=== PATIENT | female | born 1975 | race Caucasian/White ===

== ENCOUNTER 2019-03-21 16:08 | Outpatient (CLI) | payer MEDICAID ==
[~2019-03-21] VITALS: Ht 160 cm; Wt 75.9 kg
--- NOTE | 2019-03-21 16:14 | NSTRPT ---
NST Information Datetime Report Generated by CPN: 03/21/2019 16:14 Datetime: 03/18/2019 13:10 NST Information EGA: 37.1 Test Number: 4 Time on Monitor: 03/18/2019 13:27 Time off Monitor: 03/18/2019 13:58 NST Duration (Min): 31 Reason for NST: Other Reason for NST Other: Advanced Maternal Age Test and Monitor Explained: Monitor Explained; Test Explained; Verbalized Understanding; Breastfeed ing Info Given Pulse: 88 Resp: 18 SBP: 118 DBP: 79 Test Evaluation NST Interventions: None Patient States Movement: Present Contraction Frequency: NONE FHR Baseline : 130 Variability: Moderate 6-25bpm Accelerations: 15X15 Decelerations: None FHR Category: Category I NST Results: Reactive Comments: To u/s. HUDSON 13.1cm. CEPHALIC. Electronically Signed By E-Signature: with User ID: [id number] Datetime: 03/15/2019 10:43 NST Information EGA: 36.5 NST Duration (Min): 24 Datetime: 03/11/2019 13:15 NST Information EGA: 36.1 NST Duration (Min): 21 Datetime: 03/09/2019 14:52 NST Information EGA: 35.6 Datetime: 03/09/2019 14:44 NST Duration (Min): 22
[2019-03-21 16:29] VITALS: Ht 160 cm; Wt 75.9 kg
--- NOTE | 2019-03-21 18:14 | PN ---
Triage Information Date/Time Subjective: 43 year-old G 4 P 2 at 37.4 weeks gestation presents with complaints of contractions. Objective: Vitals: 118/70 General: No apparent distress Abdomen: Gravid SVE: fingertip/thick/high Electronic monit: Category 1 130/mod emre/+accels/no decels Assessment/Plan: 1. ContractionsNST reactive. BPP 8/8. Patient to be discharged home if cervical exam is unchanged. 2. sectionplan is for repeat section Disposition: discharge to home Reason for visit: Uterine contractions Weeks of Gestation 37.4 /Para 4/2 MILESTONE,IVORY MONTE Mar 21, 2019 18:14
--- NOTE | 2019-03-21 18:27 | TRIAGE ---
OB Triage Datetime Report Generated by CPN: 03/21/2019 18:27 Datetime: 03/21/2019 17:52 Vaginal Exam Dilatation (cms): 0.5 Effacement (%): 0 Station: -3 Exam By: BROOKE PEREZ Vaginal Bleeding: None Cervix, Consistency: Soft Cervix, Position: Posterior Presentation 'A': Cephalic Datetime: 03/21/2019 17:35 Stage of : OB Triage Maternal Assessment Level of Consciousness: Keenly Alert, Responsive DTR's/Clonus: DTRs 1+ Headache: Denies Breath Sounds, Left: Clear and Equal Breath Sounds, Right: Clear and Equal Nausea/Vomiting: Denies RUQ Epigastric Pain: Denies Labor Evaluation Frequency: X1 Monitor Mode: External Duration (sec)2399: 100 Quality: Mild Pattern: Normal: <= 5 Contractions in 10 Minutes Resting Tone [place]: Relaxed Heart Rate FHR Baseline Rate: 125 Monitor Mode: External US Variability: Moderate 6-25 bpm Accelerations: 15X15 Decelerations: None Category: Category I Pain Assessment Pain Presence: None/Denies Pain Type: N/A Membrane Status: Intact Datetime: 03/21/2019 16:50 Stage of : OB Triage Maternal Assessment Level of Consciousness: Keenly Alert, Responsive DTR's/Clonus: DTRs 1+ Headache: Denies Blurred Vision: No Respiratory Effort: Unlabored Breath Sounds, Left: Clear and Equal Breath Sounds, Right: Clear and Equal Nausea/Vomiting: Denies RUQ Epigastric Pain: Denies Facial Edema: None Labor Evaluation Frequency: X1 Monitor Mode: External Duration (sec)2399: 100 Quality: Mild Pattern: Normal: <= 5 Contractions in 10 Minutes Resting Tone [place]: Relaxed Heart Rate FHR Baseline Rate: 125 Monitor Mode: External US Variability: Moderate 6-25 bpm Accelerations: 15X15 Decelerations: None Category: Category I Pain Assessment Pain Presence: None/Denies Pain Type: N/A Membrane Status: Intact Datetime: 03/21/2019 16:17 Vaginal Exam Dilatation (cms): 0.5 Effacement (%): 0 Station: -3 Exam By: BROOKE PEREZ Vaginal Bleeding: None Cervix, Consistency: Soft Cervix, Position: Posterior Presentation 'A': Cephalic Datetime: 03/21/2019 16:10 Assessment Type: Triage Maternal Assessment Level of Consciousness: Keenly Alert, Responsive DTR's/Clonus: DTRs 2+; No Clonus Headache: Denies Blurred Vision: No Respiratory Effort: Unlabored; Regular Rhythm; Equal Expansion Breath Sounds, Left: Clear and Equal Breath Sounds, Right: Clear and Equal Nausea/Vomiting: Denies RUQ Epigastric Pain: Denies Lower Extremities Edema: None Degree: None Upper Extremities Edema: None Degree: None Facial Edema: None Fall Risk Assessment History of Falling: (0) No Secondary Diagnosis: (0) No Ambulatory Aid: (0) Bedrest/Nurse Assist IV Therapy: (0) No Gait: (0) Normal/Bedrest/Immobile Mental Status: (0) Oriented to Own Ability Fall Score: 0 Fall Risk Score Definition: No Risk: No action required Datetime: 03/21/2019 15:57 Time of Arrival: 03/21/2019 15:57 EGA: 37.4 Arrived By: Ambulatory Arrived From: Office Chief Complaint: PT CAME IN FROM CLINIC TO R/O LABOR PT STATES FEELING 2-3 UC'S AN HR Movement: Present Contractions: Denies/Absent Rupture of Membranes: Denies Vaginal Discharge: Denies Recent Sexual Intercouse: Denies Abdominal Trauma: Not Applicable Additional Patient Complaints: NONE Time Provider Notified: 03/21/2019 16:32 Provider Notified: [place] Initial Plan: NST AND BPP
== END 2019-03-21 18:03 | disposition home or self-care (01) ==
LOC: L-D 16:08 → OBT 16:08 → L-D 16:11 → OBT 18:03
PROVIDERS: ATTEND Specialist
DX: O62.9 Abnormality of forces of labor, unspecified (principal); O34.219 Maternal care for unspecified type scar from previous cesarean delivery; O09.523 Supervision of elderly multigravida, third trimester; Z3A.37 37 weeks gestation of pregnancy
CPT/HCPCS: 76818

== ENCOUNTER 2019-03-31 15:36 | Inpatient (IN) | payer MEDICAID ==
[~2019-03-31] VITALS: Ht 160 cm; Wt 75.5 kg
[2019-03-31] MEDS ORDERED: LACTATED RINGER'S 1,000 ML IV SCH ×2 (16:22→21:05)
[2019-03-31 16:25] VITALS: Ht 160 cm; Wt 75.5 kg
[2019-03-31] MEDS ORDERED: METHYLERGONOVINE 0.2 MG INJ IM PRN (16:30)
[2019-03-31] MEDS ORDERED: OXYTOCIN 30 UNITS/LR 500 ML IV PRN (16:30)
[2019-03-31] MEDS ORDERED: CEFAZOLIN 2 GM/50 ML (PMX) 50 ML IVPB SCH (16:30)
[2019-03-31] MEDS ORDERED: OXYTOCIN 30 UNITS/LR 500 ML IV SCH (16:30)
[2019-03-31] MEDS ORDERED: CARBOPROST 250 MCG INJ IM PRN (16:30)
[2019-03-31] MEDS ORDERED: MISOPROSTOL 200 MCG TAB PR PRN ×2 (16:30→21:30)
--- NOTE | 2019-03-31 17:23 | PREAC ---
Date/Time of Note Date/Time of Note DATE: 03/31/19 TIME: 17:22 Anesthesia Eval and Record Evaluation Time Pre-Procedure Interview DATE: 03/31/19 TIME: 17:22 Age 43 Sex female NPO: 8 hrs Preoperative diagnosis Planned procedure c/s Past Medical History Past Medical History: None Surgery & Anesthesia Issues No known issue Meds Anticoagulation: No Beta Ann-Marie within 24 hr: No Reason Beta Ann-Marie not given: Pt. not on B-Ann-Marie No Active Prescriptions or Reported Meds Current Medications Lactated Ringer's 1,000 ml @ 125 mls/hr Q8H IV ; Start 03/31/19 at 16:22 Cefazolin Sodium/ Dextrose 50 ml @ 100 mls/hr ONCE IVPB ; Start 03/31/19 at 1 6:30 Oxytocin/Lactated Ringer's 500 ml @ 125 mls/hr POST IV ; Start 03/31/19 at 16:30 Oxytocin/Lactated Ringer's 500 ml @ 0 mls/hr ONCE PRN IV .VAGINAL BLEEDING; Start 03/31/19 at 16:30 Methylergonovine Maleate (Methergine) 0.2 mg ONCE PRN IM .VAGINAL BLEEDING; Start 03/31/19 at 16:30 Carboprost Tromethamine (Hemabate) 250 mcg ONCE PRN IM .VAGINAL BLEEDING; Start 03/31/19 at 16:30 Misoprostol (Cytotec) 1,000 mcg ONCE PRN AL .VAGINAL BLEEDING; Start 03/31/19 at 16:30 Meds reviewed: Yes Allergies Coded Allergies: No Known Allergy (Unverified , 03/21/19) Allergies Reviewed: Yes Labs/Studies Labs Reviewed: Reviewed by anesthesiologist Result Diagram: 03/31/19 1600 Laboratory Tests 03/31/19 16:00 test: Positive Pre-procedure Exam Airway: Adequate mouth opening, Adequate thyromental dist Mallampati: Mallampati II Teeth: Normal Lung: Normal Heart: Normal ASA Physical Status ASA physical status: 1 Emergency: None Planned Anesthetic General/MAC: Mask Neuraxial: Spinal Planned Pain Management Sub-arachniod narcotics Pre-operative Attestations Prior to commencing anesthesia and surgery, the patient was re-evaluated, there was verification of: *The patient's identity *The results of appropriate recent lab work and preoperative vital signs *The above evaluation not changing prior to induction *Anesthetic plan, risk benefits, alternative and complications discussed with patient/family; questions answered; patient/family understands, accepts and wishes to proceed. RILEY ARREAGA Mar 31, 2019 17:23
[2019-03-31] MEDS ORDERED: NALOXONE (0.4 MG/ML) INJ IV PRN (17:30)
[2019-03-31] MEDS ORDERED: ONDANSETRON 4 MG INJ IV PRN ×2 (17:30)
[2019-03-31] MEDS ORDERED: KETOROLAC 30 MG INJ IV PRN ×2 (17:30)
[2019-03-31] MEDS ORDERED: HYDROmorphONE 0.5 MG/0.5 ML SYG IV PRN ×2 (17:30)
[2019-03-31] MEDS ORDERED: FENTAnyl 50 MCG/ML VIAL IV PRN ×3 (17:30)
[2019-03-31] MEDS ORDERED: DIPHENHYDRAMINE 50 MG INJ IV PRN ×2 (17:30)
[2019-03-31] MEDS ORDERED: HYDROmorphONE 1 MG/5 ML IV SYRINGE IV PRN ×3 (17:30)
[2019-03-31] MEDS ORDERED: ALBUTEROL 0.083% (NEB) 2.5 MG/3 ML AMP HHN PRN (17:30)
[2019-03-31] MEDS ORDERED: METOCLOPRAMIDE 10 MG INJ IV PRN (17:30)
[2019-03-31] MEDS ORDERED: PHENYLephrine (100 MCG/ML) 10ML SYG ONE (18:20)
[2019-03-31] MEDS ORDERED: morphine SULFATE/PF (10 MG/10 ML) INJ ONE (18:27)
--- NOTE | 2019-03-31 19:34 | HP ---
Date/Time of Note Date/Time of Note DATE: 03/31/19 TIME: 19:31 OB - History Hx of Present Free Text/Dictation 43 YO with EDC 04/07/2019 with IUP at 39 weeks with history of previous delivery, who desires to have repeat delivery and Permanent sterilization. I discussed with the patient the risks, benefits, indications, and alternatives of procedure including but not limited to risks of infection, bleeding, damage to other organs, bowel, bladder, hernia formation, scar formation, possibility of blood transfusion, possible need for emergency hysterectomy, as well as the fact that tubal ligation may fail and there is 1 to 2% risk of failure over lifetime of tubal ligations and the fact that tubal ligation is permanent and irreversible. She was allowed to ask questions. All her questions were answered. Informed consent has been obtained. Care: Good Care Ultrasounds: Normal mid trimester US Obstetrical Complications: None Medical Complications: None Past Family/Social History * Past Medical, Surgical, Family and Obstetric Histories reviewed from chart. OB Admission Exam Physical Exam HEENT: WNL Heart: Rhythm Normal Lungs: Clear, Equal Abdomen: WNL Extremities: Normal Reflexes: Normal Last 72 hours Lab Results CBC & BMP 03/31/19 16:00 OB Assessment/Plan Other Assessment: Assessment: IUP 39 weeks h/o previous Desires repeat Desires permanent sterilization Other plan: Repeat Delivery Tubal ligation may be done by either salpingectomy or modified [place] BTL REYMUNDO FIGUEROA MD Mar 31, 2019 19:34
--- NOTE | 2019-03-31 19:43 | OPR ---
Date/Time of Note Date/Time of Note DATE: 03/31/19 TIME: 19:34 Operative Report Procedure Date: Mar 31, 2019 Preoperative Diagnosis Term at 39 weeks Desires repeat delivery desires permanent sterilization Postoperative Diagnosis same Right tube was absent due to previous ectopic Operation/Procedure Performed Repeat delivery Left Salpingectomy Surgeon see signature line Senior Category Manager Dr. MS Jorge Anesthesia Type: spinal Estimated Blood Loss: other (700 ml) Transfusion none Specimen Left tube Grafts/Implants none Tubes/Drains Kemp Cath Complications none Pt Condition Post Procedure: stable Disposition: PACU Procedure Description The risks, benefits, indications, alternatives of procedure including, but not limited to risk of infection, bleeding, damage to other organs, bowel, bladder, hernia formation, scar formation, possibility of blood transfusions, the risks of tubal ligation such as failure and future pregnancies were discussed with the patient. The fact that BTL is permanent and irreversible also discussed with patient. She was allowed to ask questions. All her questions were answered. Informed consent was obtained. DESCRIPTION OF PROCEDURE: She was taken to the operating room. Spinal anesthesia was induced. She was prepped and draped in the usual sterile fashion. Surgical time out one. Anesthesia was tested to be adequate. With permission from anesthesiologist, a knife was used to make a Pfannenstiel skin incision. The incision was taken down in layers. The fascia was cut, undermined and from the underlying muscle using sharp and blunt dissection. All the bleeders were cauterized. Peritoneum was entered bluntly. A low transverse incision was developed over the uterus. Amniotic fluid was clear and adequate. A viable infant in vertex presentation was delivered without any difficulty. The cord was clamped and cut, handed to awaiting team. Placenta was then delivered. Uterus was exteriorized, wrapped around a moist lap. Inside uterus was cleaned using a dry lap. All residual membranes were removed. The uterine incision was then closed using #1 Monocryl in 2 layers. A 5 cm distal end of the left tube was ligated 3 times using 0 plain tie and the ligated portion was cut, sent to pathology. Right tube was absent due to previous ectopic. The uterus was inserted back inside the abdominal cavity. Irrigation was done carefully. Careful evaluation of the uterine incision revealed no further bleeding. The tubal ligation sites were evaluated carefully. There was no bleeding. The peritoneum and rectus muscles and fascia were evaluated. All bleeders cauterized. Peritoneum was closed using 2-0 Monocryl. At this time, the count was correct. Rectus muscle was reapproximated using 2-0 Monocryl. Rectus fascia was closed using #1 Vicryl. Subcutaneous tissue was cleaned and irrigated. All bleeders cauterized and the skin closed using 4-0 Monocryl. All counts correct. REYMUNDO FIGUEROA MD Mar 31, 2019 19:43
[2019-03-31] MEDS ORDERED: NA PHOSPHATE/BIPHOS 133 ML ENEMA PR PRN (21:30)
[2019-03-31] MEDS ORDERED: LANOLIN HPA 1 PKT TOP PRN (21:30)
[2019-03-31] MEDS ORDERED: OXYCODONE/ACETAMINOPHEN (5/325) TAB PO PRN (21:30)
[2019-03-31 22:45] VITALS: BP 116/70; PULSE 70; RESP 18
[2019-04-01 01:00] VITALS: BP 108/68; PULSE 70; RESP 19
[2019-04-01 04:02] VITALS: BP 122/67; PULSE 69; RESP 19
[2019-04-01] MEDS: IBUPROFEN 600 MG TAB PO SCH ×5 (06:00→23:52)
--- NOTE | 2019-04-01 08:03 | QN ---
Documentation Comment s/p c/s Subjective: no complaint Objective: Afebrile, VSS NAD A&O Abdomen: soft, appropriate tender Incision: no sign of bleeding/infection mild lochia Extremity: 1+ edema bilaterally Assessment: S/p C/S postop day #1 Recovering Well Plan: current care REYMUNDO FIGUEROA MD Apr 01, 2019 08:03
[2019-04-01 08:30] VITALS: BP 104/71; PULSE 79; RESP 18
[2019-04-01] MEDS: SENNA/DOCUSATE NA (8.6MG/50MG) TAB PO SCH ×2 (09:11→20:47)
[2019-04-01 16:07] VITALS: BP 104/63; PULSE 78; RESP 18
[2019-04-01 20:00] VITALS: BP 121/85; PULSE 86; RESP 18
[2019-04-01] MEDS: OXYCODONE/ACETAMINOPHEN (5/325) TAB PO PRN (20:47)
--- NOTE | 2019-04-01 23:29 | DELSUM ---
Delivery Summary A-C Datetime Report Generated by CPN: 04/01/2019 23:28 DELIVERY PERSONNEL Managed Care Manager: Bandar, Shellie MATERNAL INFORMATION Delivery Anesthesia: Spinal Medications in Delivery: See anesthesia records Delivery QBL (ml): 700 Placenta Cultured: No Maternal Complications: None LABOR SUMMARY EDC: 04/07/2019 00:00 No. Babies in Womb: 1 Attempted: No Labor Anesthesia: None LABOR INFORMATION Reason for Induction: Not Applicable Group B Beta Strep: Not Done Antibiotics # of Doses: 1 Antibiotics Time of Last Dose: 03/31/2019 16:50 Steroids Given: None Reason Steroids Not Administered: Not Applicable MEMBRANES Membranes Rupture Method: Artificial Rupture of Membranes: 03/31/2019 19:03 Length of Rupture (hr): 0.00 Amniotic Fluid Color: Clear Amniotic Fluid Amount: Small Amniotic Fluid Odor: Normal STAGES OF LABOR Stage 3 hr: 0 Stage 3 min: 1 CSECTION DELIVERY Primary Indication: Repeat Elective CSection Urgency: Non Elective CSection Incidence: Repeat Labor: No Labor Elective: Nonelective CSection Incision: Lower Uterine Transverse Sterilization Procedure: [place] BABY A INFORMATION Infant Delivery Date/Time: 03/31/2019 19:03 Method of Delivery: Born in Route : No : N/A Forceps: N/A Vacuum Extraction: N/A Shoulder Dystocia : No SHOULDER DYSTOCIA BABY A Infant Delivery Date/Time: 03/31/2019 19:03 PRESENTATION/POSITION BABY A Presentation: Cephalic Cephalic Presentation: Vertex Vertex Position: Left Occipital Anterior Breech Presentation: N/A PLACENTA INFORMATION BABY A Placenta Delivery Time : 03/31/2019 19:04 Placenta Method of Delivery: Manual Removal Placenta Status: Delivered SCORES BABY A Heart Rate 1 min: >100 bpm Resp Effort 1 min: Good Cry Reflex Irritability 1 min: Cough/Sneeze/Pulls Away Muscle Tone 1 min: Active Motion Color 1 min: Body [place], Extremit Blue Resuscitation Effort 1 min: Tactile Stimulation SCORE 1 MIN: 9 Heart Rate 5 min: >100 bpm Resp Effort 5 min: Good Cry Reflex Irritability 5 min: Cough/Sneeze/Pulls Away Muscle Tone 5 min: Active Motion Color 5 min: Body [place], Extremit Blue Resuscitation Effort 5 min: Tactile Stimulation SCORE 5 MIN: 9 INFANT INFORMATION BABY A Gestational Age at Delivery: 39.0 Gestational Status: Full Term- 39- 40.6 Weeks Infant Outcome : Liveborn, with signs of life Infant Condition : Stable Infant Sex: Female IDENTIFICATION/MEDS BABY A ID Band Number: [id number] ID Band Location: Right Leg; Left Arm Sensor Applied: Yes Sensor Number: [id number] Sensor Location : Cord Clamp Vitamin K Given : Not Given Erythromycin Given: Not Given WEIGHT/LENGTH BABY A Birthweight (gm): 3815 Infant Weight (lb): 8 Infant Weight (oz): 7 Infant Length (in): 20.50 Length (cm): 52.07 CORD INFORMATION BABY A No. Cord Vessels: 3 Nuchal Cord : N/A Cord Blood Taken: Yes Suction: Mouth; Nose ASSESSMENT BABY A Complications: None Physical Findings at Delivery: Within Normal Limits Infant Respirations: Appears Normal [employer] Called : No Care By: SCARLETT Transferred To: Remains with Mother
[2019-04-02 04:12] VITALS: BP 106/71; PULSE 74; RESP 20
[2019-04-02] MEDS: IBUPROFEN 600 MG TAB PO SCH ×3 (05:44→18:10)
[2019-04-02 08:00] VITALS: BP 115/78; PULSE 78; RESP 20
[2019-04-02] MEDS: SENNA/DOCUSATE NA (8.6MG/50MG) TAB PO SCH ×2 (09:07→21:30)
--- NOTE | 2019-04-02 11:44 | PAC ---
Date/Time of Note Date/Time of Note DATE: 04/02/19 TIME: 11:44 Post-Anesthesia Notes Post-Anesthesia Note Last documented vital signs Vital Signs Date Temp Pulse Resp B/P (MAP) Pulse Ox O2 O2 Flow FiO2 Time Delivery Rate 04/02/19 98.9 78 20 115/78 Room Air 08:00 (90) 04/01/19 97 04:02 Activity: WNL Respiratory function: WNL Cardiovascular function: WNL Mental status: Baseline Pain reasonably controlled: Yes Hydration appropriate: Yes Nausea/Vomiting absent: Yes RILEY ARREAGA Apr 02, 2019 11:44
--- NOTE | 2019-04-02 14:43 | QN ---
Documentation Comment Postop day #2 Status post repeat Patient stable and afebrile Positive flatus and voiding and tolerating regular diet and ambulating Vital signs stable VS - Last 72 Hours, by Label Date Temp Pulse Resp B/P (MAP) Pulse Ox O2 O2 Flow FiO2 Time Delivery Rate 04/02/19 98.9 78 20 115/78 Room Air 08:00 (90) 04/02/19 98.6 74 20 106/71 Room Air 04:12 (83) 04/01/19 97.9 86 18 121/85 Room Air 20:00 (97) 04/01/19 98.3 78 18 104/63 Room Air 16:07 (77) 04/01/19 98.3 79 18 104/71 Room Air 08:30 (82) 04/01/19 98.2 69 19 122/67 97 Room Air 04:02 (85) 04/01/19 98.0 70 19 108/68 97 Room Air 01:00 (81) 03/31/19 97.8 70 18 116/70 95 Room Air 22:45 (85) Hematology - 72 Hrs Test 03/31/19 16:00 04/01/19 04:27 Hematocrit 33.5 % (37.0-47.0) L 32.3 % (37.0-47.0) L Hemoglobin 11.1 g/dl (12.0-16.0) L 10.6 g/dl (12.0-16.0) L Mean Corpuscular 29.8 pg (29.0-33.0) 29.5 pg (29.0-33.0) Hemoglobin Mean Corpuscular 33.1 g/dl (32.0-37.0) 32.8 g/dl (32.0-37.0) Hemoglobin Concent Mean Corpuscular Volume 90.1 fl (82.0-101.0) 90.0 fl (82.0-101.0) Mean Platelet Volume 10.1 fl (7.4-10.4) 10.0 fl (7.4-10.4) Platelet Count 187 10^3/UL (140-415) 167 10^3/UL (140-415) Red Blood Count 3.72 10^6/ul (4.20-5.40) 3.59 10^6/ul (4.20-5.40) L L Red Cell Distribution 13.6 % (11.5-14.5) 13.3 % (11.5-14.5) Width White Blood Count 12.3 10^3/ul (4.8-10.8) 11.7 10^3/ul (4.8-10.8) H H Abdomen soft, fundus firm Incision clean,dry,intact Extremities nontender Assessment and plan Patient stable and doing well Encouraged to ambulate Continue with routine postop care LINDSEY CLEMENTS MD Apr 02, 2019 14:43
[2019-04-02 16:00] VITALS: BP 125/80; PULSE 85; RESP 19
[2019-04-02 22:00] VITALS: BP 123/78; PULSE 89; RESP 20
[2019-04-03] MEDS: IBUPROFEN 600 MG TAB PO SCH ×3 (02:01→11:39)
[2019-04-03 04:19] VITALS: BP 109/78; PULSE 71; RESP 20
[2019-04-03] MEDS ORDERED: MEASLES,MUMPS,RUBELLA VACCINE INJ SC* ONE (09:00)
[2019-04-03] MEDS ORDERED: DIPHTH/TET/ACEL PERTUSS (ADULT) 0.5 ML VIAL IM* ONE (09:00)
[2019-04-03 09:30] VITALS: BP 100/72; PULSE 82; RESP 18
[2019-04-03] MEDS: OXYCODONE/ACETAMINOPHEN (5/325) TAB PO PRN ×2 (09:30→15:05)
[2019-04-03] MEDS: SENNA/DOCUSATE NA (8.6MG/50MG) TAB PO SCH (09:30)
--- NOTE | 2019-04-03 13:18 | DS ---
Date/Time of Note Date/Time of Note DATE: 04/03/19 TIME: 13:16 Obstetrical Discharge Record Final Diagnosis Final Diagnosis: Term delivered Other Final Diagnosis Patient was admitted for repeat delivery and bilateral salpingectomy which were done without any complications. Postoperative care was uneventful. She remained afebrile. Vital signs remained stable. She had bowel movement. Ambulating well. Good pain control on oral pain medications. Mild lochia. Vaginal Delivery Obstetrical Delivery: Bilateral Tubal Ligation Section Section: Repeat Complications Augmentation: No Induction: No Rupture of Membranes: No Condition on Discharge Physical Assessment Voiding: Yes Bowel Movement: Yes Breast: Soft, non-tender, Filling Fundus: Firm Abdomen and Incision: Soft appropriate tenderness. Incision is clean dry intact no sign of infection. Calf Tenderness: No Patient Condition: Good REYMUNDO FIGUEROA MD Apr 03, 2019 13:18
== END 2019-04-03 16:00 | disposition home or self-care (01) | DRG 785 ==
LOC: L-D 15:36 → EDUNIT# 17:00 → L-D 20:14 → MS1 23:04
PROVIDERS: ADMIT Specialist; ATTEND Specialist
PROC: 0UB60ZZ Excision of Left Fallopian Tube, Open Approach (ICD-10-PCS; 2019-03-31)
PROC: 10D00Z1 Extraction of Products of Conception, Low, Open Approach (ICD-10-PCS; principal; 2019-03-31 17:00)
DX: O34.219 Maternal care for unspecified type scar from previous cesarean delivery (principal); Z3A.39 39 weeks gestation of pregnancy; Z37.0 Single live birth; Z30.2 Encounter for sterilization
CPT/HCPCS: 85025; 85610; 85730; 86592; 86850; 86900; 86901; 87340; 88302; 90715; J0690; J1170; J2274; J2370; J2590; J3010; J7120